=== PATIENT | male | born 1950 | race Caucasian/White ===

== ENCOUNTER → 2020-05-08 11:00 | Outpatient (BNVA) | payer MEDICARE, OTHER, SELFPAY | PROVIDERS: Family Provider Electrodiagnostic Medicine; Visit Provider Family Medicine | DX: E11.9 Type 2 diabetes mellitus without complications (principal); I10 Essential (primary) hypertension; Z79.4 Long term (current) use of insulin; E03.9 Hypothyroidism, unspecified | CPT/HCPCS: 80053; 80061; 83036; 84443; 85025 ==

== ENCOUNTER 2020-06-20 05:51 | Day surgery (SDC) | payer MEDICARE, OTHER, SELFPAY ==
[2020-06-18 14:13] VITALS: BMI 44.4
[2020-06-20 06:06] VITALS: BP 155/91; PULSE 82; RESP 18; TEMP 36.3; O2SAT 96
[2020-06-20] MEDS: sodium chloride 0.9% 1,000 ML 30 ML IV ×2 (06:16→09:05)
[2020-06-20 06:18] LABS: Glucose Point of Care 203 mg/dL (70-110)
--- NOTE | 2020-06-20 06:51 | P.ANESASSM_ITS ---
Pre-Anesthetic Assessment Pre-Anesthetic Assessment: Height/Weight: Height 2.01 m Weight 179.169 kg Temp Pulse Resp BP Pulse Ox 97.3 F L 82 18 155/91 96 06/20/20 06:06 06/20/20 06:06 06/20/20 06:06 06/20/20 06:06 06/20/20 06:06 Preop Diagnosis: Status post right colectomy Proposed Procedure: Operation Date: 06/20/20 07:00 Proposed Procedures p Colonoscopy with poss biopsy poss polpectomy 05992 Z86.010(Not Applicable) - Gary Loco MD Was Beta Марина taken within 24 hours: Yes Last intake: Intake Last Liquid Date 06/19/20 Last Liquid Time 20:00 Last Solid Date 06/18/20 Social: Social History: No alcohol and No tobacco Exam: Pre-Anes Outpt Exam: alert, oriented x 3, clear to auscultation brown aterally and regular rate & rhythm Airway: Submandibular: WNL Cervical ROM: WNL MP: 2 Dentition: Full History/ROS: No significant history except as noted and No significant complaints Pulmonary: Pulmonary: None reported CV/HEM: CV/HEM: HTN : : None reported Hepatic: Hepatic: None reported GI: GI: GERD Metabolic: Metabolic: DM, Morbid obesity and Thyroid Musc/skel: Musc/skel: None reported Neuropsych: Neuropsych: None reported Anesthetic Plan: ASA status: 3 Anesthesia: Anesthesia Evaluation and MAC Risk of > 500 ml blood loss (7ml/kg in children): No Meds/Allergies Current Medications: Current Medications Generic Name Dose Route Start Last Admin Trade Name Freq PRN Reason Stop Dose Admin Sodium Chloride 1,000 mls @ 30 ml s/hr 06/20/20 06:00 06/20/20 06:16 Sodium Chloride 0.9% IV 30 mls/hr .Q24H AN Administration PFSH Anesthesia PFSH: Medical History (Updated 05/17/20 @ 17:52 by Gary Loco MD) Diabetes mellitus H/O adenomatous polyp of colon Hypertension Hypothyroidism Surgical History (Updated 05/17/20 @ 17:52 by Gary Loco MD) History of colectomy History of colonoscopy Family History Denies family history of Anesthesia complication Bleeding disorder Social History Smoking and tobacco status: never smoked Alcohol intake: never Data Anesthesia Other Labs: Laboratory Results - last 48 hr 06/20/20 06:14 POC Glucose 203 Cardiac Studies: No Data to Display
--- NOTE | 2020-06-20 09:02 | W.PM.OPSFHP ---
Same Day Surgery H&P Indication for Procedure/HPI DATE OF PROCEDURE: June 20, 2020 CHIEF COMPLAINT/INDICATIONFOR SURGICAL PROCEDURE: history of colon polyps PREOP DIAGNOSIS: Status post right colectomy PLANNED PROCEDRUE: Operation Date: 06/20/20 07:00 Proposed Procedures p Colonoscopy with poss biopsy poss polpectomy 13755 Z86.010(Not Applicable) - Gary Loco MD Medications/Allergies* Home Medications Medication Instructions Recorded Confirmed Type aspirin 81 mg tablet,delayed 81 mg PO DAILY 05/08/20 06/18/20 History release levothyroxine 200 mcg tablet 200 mcg PO DAILY 05/08/20 06/18/20 History glimepiride 5 mg PO BID 05/14/20 06/20/20 History losartan-hydrochlorothiazide 1 tab PO DAILY 06/18/20 06/20/20 History omeprazole 20 mg PO DAILY PRN 06/20/20 06/20/20 History Allergies/Adverse Reactions Allergy/AdvReac Type Severity Reaction Status Date / Time No Known Allergies Allergy Unverified 05/14/20 13:24 Current Medications: Generic Name Dose Route Start Last Admin Trade Name Freq PRN Reason Stop Dose Admin Sodium Chloride 1,000 mls @ 30 mls/hr 06/20/20 06:00 06/20/20 06:16 Sodium Chloride 0.9% IV 30 mls/hr .Q24H AN Administration Pertinent History/Comorbid Conditions* Medical History (Updated 05/17/20 @ 17:52 by Gary Loco MD) Diabetes mellitus H/O adenomatous polyp of colon Hypertension Hypothyroidism Surgical History (Updated 05/17/20 @ 17:52 by Gary Loco MD) History of colectomy History of colonoscopy Family History (Updated 05/14/20 @ 13:27 by ZO Vale) Denies family history of Anesthesia complication Bleeding disorder Social History Smoking and tobacco status: never smoked Alcohol intake: never Pertinent Exam Findings alert, oriented x 3 and operative site marked Recommendations Surgery/Procedure today Coding Level of Care Code Acute College And Career Counselor for Mateo Blood
[2020-06-20 09:20] VITALS: BP 131/67; PULSE 61; RESP 16; TEMP 36.2; O2SAT 93
[2020-06-20 09:36] VITALS: BP 124/74; PULSE 64; RESP 18; O2SAT 94
== END 2020-06-20 09:40 | disposition home or self-care (01) ==
PROVIDERS: PCP Electrodiagnostic Medicine; Visit Provider Surgery
PROC: 0DJD8ZZ Inspection of Lower Intestinal Tract, Via Natural or Artificial Opening Endoscopic (ICD-10-PCS; CPT 45378; principal; 2020-06-20 07:00)
DX: Z86.010 Personal history of colon polyps (principal); Z90.49 Acquired absence of other specified parts of digestive tract; Z79.82 Long term (current) use of aspirin; E11.9 Type 2 diabetes mellitus without complications; E03.9 Hypothyroidism, unspecified; I10 Essential (primary) hypertension; K57.30 Diverticulosis of large intestine without perforation or abscess without bleeding; K21.9 Gastro-esophageal reflux disease without esophagitis; E66.01 Morbid (severe) obesity due to excess calories; Z68.41 Body mass index [BMI] 40.0-44.9, adult
CPT/HCPCS: 12345; 36416; 45378; 82962; J2704; J7030

== ENCOUNTER 2020-08-12 17:27 | Emergency (ER) | payer MEDICARE, OTHER, SELFPAY ==
[2020-08-12 17:36] VITALS: BP 179/84; PULSE 75; RESP 14; TEMP 36.7; O2SAT 95; BMI 45.0
--- NOTE | 2020-08-12 18:10 | XR_ITS ---
WS: [id number] EXAM: AP CHEST: PORTABLE UPRIGHT DATE OF EXAM: 08/12/2020, 1834 hours COMPARISON: NONE HISTORY: Patient is 70 years old with atraumatic chest pain. FINDINGS: The cardiac silhouette is normal in size. The mediastinal contours are normal. The pulmonary vas cularity is normal. The lungs are clear of infiltrate. There is no effusion or pneumothorax. No ac amy bony abnormality is seen. XR/XR chest 1V portable [id number] IMPRESSION: No acute pulmonary disease.
[2020-08-12 18:22] VITALS: O2SAT 94
[2020-08-12 18:26] LABS: Basophils # 0.1 10^3/uL (0.0-0.1); Basophils % 0.6 %; Eosinophils # 0.3 10^3/uL (0.0-0.8); Eosinophils % 2.6 %; Hematocrit 38.5 % (42.0-52.0); Hemoglobin 12.3 g/dL (11.7-16.6); Lymphocytes % 31.7 %; Mean Corpuscular HGB Conc 31.9 g/dL (30.0-36.0); Mean Corpuscular Hemoglobin 25.8 pg (28.0-34.0); Mean Corpuscular Volume 80.7 fL (80-94); Mean Platelet Volume 10.5 fL (7.4-10.4); Monocytes # 0.6 10^3/uL (0.2-0.9); Monocytes % 6.6 %; Neutrophils # 5.58 10^3/uL (1.8-7.7); Neutrophils % 58.1 %; Nucleated Red Blood Cells % 0 %; Platelet Count 196 10^3/cmm (130-400); Red Blood Count 4.77 10^6/uL (4.1-5.3); Red Cell Distribution Width 14.7 % (12.1-15.1); White Blood Count 9.6 10^3/uL (4.0-10.0)
--- NOTE | 2020-08-12 18:29 | ED_ITS ---
HPI - Chest Pain General: Chief Complaint: Chest Pain Stated Complaint: CHEST PAIN Time Seen by Provider: 08/12/20 18:10 Source: patient Mode of arrival: ambulatory Limitations: no limitations History of Present Illness: HPI narrative: 70-year-old male with extensive cardiac history. Patient has history of high blood pressure along with diabetic and obesity. Patient had stents placed roughly 8 years ago. He states he has been having chest pain is a pressure type pain in the center of his chest that started 1 hour ago. He states the pain has improved. States pain is currently 2 out of 10. Denies any shortness of breath. Associated symptoms: Deny abdominal pain, dyspnea, fever(s), nausea or vomiting Review of Systems Const: Denies: fever(s), chills, body aches or change in appetite Eyes: Denies: blurry vision or eye discomfort ENMT: Denies: throat pain or dental pain Card: Reports: chest pain Resp: Denies: dyspnea GI: Denies: abdominal pain, nausea, vomiting or diarrhea : Denies: dysuria Musc: Denies: neck pain or back pain Skin/Breast: Denies: rash Neuro: Denies: headache(s) Psych: Denies: depression Boby/Lymph: Denies: easy bruising All/Imm: Denies: urticaria PFSH ED PFSH: Medical History Diabetes mellitus H/O adenomatous polyp of colon Hypertension Hypothyroidism Surgical History History of colectomy History of colonoscopy (06/20/20) diverticulosis Family History Denies family history of Anesthesia complication Bleeding disorder Social History Smoking and tobacco status: never smoked Alcohol intake: never Physical Exam Const: COMMON NORMALS: no acute distress, patient oriented x3 and healthy appearing HENMT: COMMON NORMALS: normocephalic and atraumatic HEAD & SCALP: normocephalic and atraumatic Eye: COMMON NORMALS: Equal, round and reactive pupils present and EOMs intact bilaterally PUPIL: Yes Equal, round and reactive pupils present Neck/C-Spine: COMMON NORMALS: full ROM and supple Chest: COMMONS NORMALS: normal inspection of the chest and normal palpation of entire chest wall Resp: COMMON NORMALS: normal respiratory effort, No retractions, No use of accessory muscles and clear to auscultation bilaterally AUSCULTATION: clear to auscultation bilaterally Cardio: COMMON NORMALS: regular rate, regular rhythm and No murmurs present (Cardio) RATE: regular rate RHYTHM: regular rhythm GI: COMMON NORMALS: Normal to inspection, nondistended, normoactive bowel soun ds present, Soft to palpation, non-tender and no masses PALPATION: Yes Soft to palpation Extremity: COMMON NORMALS: normal to inspection and full ROM Neuro: COMMON NORMALS: patient oriented x3, moves all extremities and no focal motor deficits Psych: COMMON NORMALS: mental status grossly normal, Normal thought process present and cooperative THOUGHT PROCESS: Normal thought process present Skin: COMMON NORMALS: no rashes or lesions noted and no wounds GENERAL SKIN EXAM: no rashes or lesions noted Course Vital Signs: Vital signs: Vital Signs Temperature 98.0 F 08/12/20 17:36 Pulse Rate 75 08/12/20 17:36 Respiratory Rate 14 08/12/20 17:36 Blood Pressure 179/84 08/12/20 17:36 Pulse Oximetry 94 08/12/20 18:22 MDM - Chest Pain MDM Narrative: Medical decision making narrative: 70-year-old male who presents here with chest pain. Patient has multiple risk factors and a high heart score. Patient's initial troponin and EKG here are normal. His pain is improved here as well. He has been hypertensive here. I spoke to hospitalist will admit for observation for ACS rule out. Lab Data: Labs: Lab Results 08/12/20 08/12/20 08/12/20 Range/Units 18:20 18:20 18:20 WBC 9.6 (4.0-10.0) 10^3/ uL RBC 4.77 (4.1-5.3) 10^6/u L Hgb 12.3 (11.7-16.6) g/dL Hct 38.5 L (42.0-52.0) % MCV 80.7 (80-94) fL MCH 25.8 L (28.0-34.0) pg MCHC 31.9 (30.0-36.0) g/dL RDW 14.7 (12.1-15.1) % Plt Count 196 (130-400) 10^3/c mm MPV 10.5 H (7.4-10.4) fL Neut % (Auto) 58.1 % Lymph % (Auto) 31.7 % Mason % (Auto) 6.6 % Eos % (Auto) 2.6 % Baso % (Auto) 0.6 % Neut # (Auto) 5.58 (1.8-7.7) 10^3/u L Lymph # (Auto) 3.0 (0.8-4.8) 10^3/u L Mason # (Auto) 0.6 (0.2-0.9) 10^3/u L Eos # (Auto) 0.3 (0.0-0.8) 10^3/u L Baso # (Auto) 0.1 (0.0-0.1) 10^3/u L Nucleated RBC % (a uto) 0 % Nucleated RBCs # 0.0 /100WBC PT 12.70 (12.1-14.9) SECO NDS INR 0.95 (0.8-1.2) Sodium 134 L (136-145) mmol/L Potassium 4.1 (3.5-5.1) mmol/L Chloride 97 L (98-107) mmol/L Carbon Dioxide 25 (22-29) mmol/L Anion Gap 16.1 (5-19) BUN 14 (8-23) mg/dL Creatinine 1.2 (0.7-1.2) mg/dL GFR Calculation 60.2 L (90-130) mL/min Glucose 274 H (65-115) mg/dL Calculated Osmolal ity 284 L (285-295) mOsm/k g Calcium 8.9 (8.5-10.5) mg/dL Total Bilirubin 0.6 (0.15-1.2) mg/dL AST 41 H (0-40) U/L ALT 47 H (0-41) U/L Alkaline Phosphata se 109 (40-130) IU/L Troponin T Baselin e (0-15) ng/L Total Protein 7.1 (6.6-8.7) g/dL Albumin 3.7 (3.5-5.2) g/dL Globulin 3.4 (1.3-4.6) g/dL 08/12/20 Range/Units 18:20 WBC (4.0-10.0) 10^3/ uL RBC (4.1-5.3) 10^6/u L Hgb (11.7-16.6) g/dL Hct (42.0-52.0) % MCV (80-94) fL MCH (28.0-34.0) pg MCHC (30.0-36.0) g/dL RDW (12.1-15.1) % Plt Count (130-400) 10^3/c mm MPV (7.4-10.4) fL Neut % (Auto) % Lymph % (Auto) % Mason % (Auto) % Eos % (Auto) % Baso % (Auto) % Neut # (Auto) (1.8-7.7) 10^3/u L Lymph # (Auto) (0.8-4.8) 10^3/u L Mason # (Auto) (0.2-0.9) 10^3/u L Eos # (Auto) (0.0-0.8) 10^3/u L Baso # (Auto) (0.0-0.1) 10^3/u L Nucleated RBC % (a uto) % Nucleated RBCs # /100WBC PT (12.1-14.9) SECO NDS INR (0.8-1.2) Sodium (136-145) mmol/L Potassium (3.5-5.1) mmol/L Chloride (98-107) mmol/L Carbon Dioxide (22-29) mmol/L Anion Gap (5-19) BUN (8-23) mg/dL Creatinine (0.7-1.2) mg/dL GFR Calculation (90-130) mL/min Glucose (65-115) mg/dL Calculated Osmolal ity (285-295) mOsm/k g Calcium (8.5-10.5) mg/dL Total Bilirubin (0.15-1.2) mg/dL AST (0-40) U/L ALT (0-41) U/L Alkaline Phosphata se (40-130) IU/L Troponin T Baselin e 9 (0-15) ng/L Total Protein (6.6-8.7) g/dL Albumin (3.5-5.2) g/dL Globulin (1.3-4.6) g/dL Imaging Data^: CXR: Radiologist's impression: [facility] [address] [place] [address] XRay Report Signed Patient: Amado Chaney Unit #: [id number] : 1950 Age/Sex: 70 / M ADM Date: 08/12/20 Loc: ER Room/Bed: Attending Dr: Ordering Provider/Ordering MD: Mariana Nguyễn MD Date of Service: 08/12/20 Procedure(s): XR chest 1V portable [id number] Accession Number(s): [id number] Report Number: [id number] WS: [id number] EXAM: AP CHEST: PORTABLE UPRIGHT DATE OF EXAM: 08/12/2020, 1834 hours COMPARISON: NONE HISTORY: Patient is 70 years old with atraumatic chest pain. FINDINGS: The cardiac silhouette is normal in size. The mediastinal contours are normal. The pulmonary vascularity is normal. The lungs are clear of infiltrate. There is no effusion or pneumothorax. No acute bony abnormality is seen. XR/XR chest 1V portable [id number] IMPRESSION: No acute pulmonary disease. EKG Data^: EKG 1: Attestation: I personally reviewed and interpreted this EKG as follows: EKG interpretation date: 08/12/20 EKG interpretation time: 15:30 Interpretation: nsr hr [address] or t wave abnormalities qrs 105 qtc 422 Discharge Plan Discharge Condition: Good Prescriptions: No Action aspirin [Adult Low Dose Aspirin] 81 mg tablet,delayed release (DR/EC) 81 mg PO DAILY RF: 0 Lantus U-100 Insulin 100 unit/mL solution 100 unit SUBCUT DAILY Qty: 300 RF: 3 (DME) insulin syringe-needle U-100 [Advocate Syringes] 1 mL 31 gauge x 5/16 syringe See Rx Instructions .ROUTE .MEDSUPPLY Qty: 100 RF: 4 omeprazole 20 mg tablet,delayed release (DR/EC) 20 mg PO DAILY PRN (Reason: Acid Reflux) Qty: 90 RF: 0 glipizide 5 mg tablet 5 mg PO BID Qty: 60 RF: 2 levothyroxine 200 mcg tablet 200 mcg PO DAILY Qty: 90 RF: 0 losartan-hydrochlorothiazide 50-12.5 mg Tablet 2 tab PO DAILY RF: 0 Coding Level of Care Code ED Is Consultant for Chg Fwd Exam Comprehensive
[2020-08-12 18:43] LABS: Alanine Aminotransferase 47 U/L (0-41); Albumin Level 3.7 g/dL (3.5-5.2); Alkaline Phosphatase 109 IU/L (40-130); Anion Gap 16.1 (5-19); Aspartate Amino Transferase 41 U/L (0-40); Blood Urea Nitrogen 14 mg/dL (8-23); Calcium 8.9 mg/dL (8.5-10.5); Carbon Dioxide 25 mmol/L (22-29); Chloride 97 mmol/L (98-107); Globulin 3.4 g/dL (1.3-4.6); Glomerular Filtration Rate 60.2 mL/min (90-130); Glucose 274 mg/dL (65-115); Osmolality Calculated 284 mOsm/kg (285-295); Potassium 4.1 mmol/L (3.5-5.1); Sodium 134 mmol/L (136-145); Total Bilirubin 0.6 mg/dL (0.15-1.2); Total Protein 7.1 g/dL (6.6-8.7)
[2020-08-12 18:45] LABS: Troponin(5th) Baseline 9 ng/L (0-15)
[2020-08-12 18:52] LABS: INR 0.95 (0.8-1.2)
[2020-08-12] MEDS: aspirin 81 mg Chew Tablet 324 MG PO (18:58)
--- NOTE | 2020-08-12 18:59 | PC.NURSE ---
Patient reports he is feeling much better at this time and denies any pain at present. ASA given per doctor's orders.
--- NOTE | 2020-08-12 19:58 | PM.HP ---
Providers/Chief Complaint Primary Care Provider: Darrell Khalil DO Chief Complaint: CHEST PAIN History of Present Illness Amado Chaney is a 70 year old male who carries established history of right coronary artery disease status post stent placement in 2008, hypertension, type 2 diabetes, obesity, came in today after experiencing chest pain. Patient is stating that he was preparing to attend a birthday libertarian of his grand son today, 1 hour before his arrival to the ER he started experiencing substernal pressure-like sensation, he described as someone sitting on his chest, his pain was also radiating towards his left shoulder, he felt nauseous and experienced diaphoresis and decided to come to the hospital. On arrival to the hospital he was given 20 mg of IV hydralazine for hypertensive urgency along aspirin therapeutic dose which relieved his substernal chest pressure. Patient is stating that he is not very active at baseline, does not smoke or drink alcohol. He has not noticed any fever, shortness of breath, vomiting, diarrhea, constipation, dysuria, cough, swelling of lower extremities or leg cramps. Patient is stating that at home his blood pressure runs between 130s to 140s, he is taking losartan and hydrochlorothiazide on regular basis. He is endorsing some dizziness on changing position in his bed. He is describing dizziness as surroundings are spinning. He is endorsing similar episode in the past for which he required meclizine. Diagnosis in the ER revealed normal CBC, mild hyponatremia, hyperglycemia, mild abnormal transaminases, baseline troponin IX, EKG without ischemic or infarctive change At the time of my evaluation blood pressure 179/84, he is chest pain-free, complained about nausea and was able to give above-mentioned detail I would request d-dimer, Lexiscan stress test, lipid profile and TSH Patient is not sure why he is not taking atorvastatin Review of Systems Const: Reports: body aches and fatigue; Denies: fever(s) or chills Eyes: Denies: change in vision ENMT: Denies: throat pain Card: Reports: chest pain and dyspnea on exertion; Denies: irregular heart rhythm, swelling of feet/ankles or orthopnea Resp: Denies: dyspnea GI: Denies: abdominal pain : Denies: flank pain Musc: Denies: neck pain Skin/Breast: Denies: rash Neuro: Reports: dizziness Psych: Denies: anxiety Endo: Denies: polyuria Boby/Lymph: Denies: easy bruising All/Imm: Denies: urticaria Medications/Allergies Home Medications Medication Instructions Recorded Confirmed Last Taken Type aspirin 81 mg tablet,delayed 81 mg PO DAILY 05/08/20 08/12/20 08/12/20 History release insulin glargine 100 unit/mL 100 unit SUBCUT DAILY #300 ml 05/08/20 08/12/20 08/12/20 Rx subcutaneous solution insulin syringe-needle U-100 1 mL #100 each 05/08/20 08/12/20 Unknown Rx 31 gauge x 04/13 losartan-hydrochlorothiazide 2 tab PO DAILY 06/18/20 08/12/20 08/12/20 History omeprazole 20 mg tablet,delayed 20 mg PO DAILY PRN #90 tab 06/25/20 08/12/20 Unknown Rx release glipizide 5 mg tablet 5 mg PO BID #60 tab 07/01/20 08/12/20 08/12/20 08:00 Rx levothyroxine 200 mcg tablet 200 mcg PO DAILY #90 tab 07/02/20 08/12/20 08/12/20 Rx Allergies Allergy/AdvReac Type Severity Reaction Status Date / Time No Known Allergies Allergy Verified 08/12/20 18:32 PFSH Acute PFSH: Medical History Diabetes mellitus H/O adenomatous polyp of colon Hypertension Hypothyroidism Surgical History History of colectomy History of colonoscopy (06/20/20) diverticulosis Family History Denies family history of Anesthesia complication Bleeding disorder Social History (Updated 08/12/20 @ 21:26 by Kevan Khan MD) Smoking and tobacco status: never smoked Alcohol intake: never Substance/Drug Use: never Marital status: Current occupational status: retired Current occupation: Previous SENIOR [employer] DEVELOPER of [employer] Vitals/I&O/Wt Last Vital Signs Temp 98.0 F 08/12/20 17:36 Pulse 75 08/12/20 17:36 Resp 14 08/12/20 17:36 BP 179/84 09/14/20 17:36 Pulse Ox 94 08/12/20 18:22 Weight last 48 hrs Weight 181.437 kg Physical Exam Narrative: EXAM NARRATIVE: Very pleasant male Currently sitting in the chair without any active chest pain Systolic blood pressure 179, diastolic 84 mmHg No murmur appreciated on cardiac auscultation, S1-S2 Morbid obesity Abdomen soft, distended, with obesity, Appropriate mood and affect EOMI, PERRLA Bilateral breath sounds without adventitious sounds Neurologically nonfocal exam No lower extremity edema gangrene or ulcer Data : 08/12/20 18:20 08/12/20 18:20 A&P Assessment and plan (1) Unstable angina: Status: Acute (2) Diabetes mellitus: Status: Acute (3) Hypertension: Status: Acute (4) Hypothyroidism: Status: Acute Additional A&P Information Unstable angina Typical symptoms of coronary disease with underlying established coronary disease with stent placement in RCA in 2008 First troponin 9, without ischemic or infarctive changes on EKG Currently chest pain-free Serial troponins and EKG Cardiac stress test in the morning Patient prefers to see his own superintendent distribution in [place] in case angiogram is recommended Agreeable for cardiac stress test tomorrow N.p.o. after midnight Avoid beta-blockers Check lipid panel and TSH, d-dimer to rule out PE(leading a sedentary lifestyle) Patient is not on statins despite coronary disease, I would defer statin initiation to his superintendent distribution however I have reinstated the importance of atorvastatin Check BNP and echo in the am Hypertensive urgency Required 20 mg of hydralazine in the ER I believe he requires at least 3 antihypertensive agents Would avoid adding beta-eufemia for now because of cardiac stress testing in the morning, will give an extra dose of lisinopril tonight, might benefit from optimizing current regimen and adding amlodipine Hypothyroidism: Check TSH, continue levothyroxine home dosage for now Hyperglycemia with type 2 diabetes Keep him on mild sliding scale in case he will be n.p.o. overnight Full code VT prophylaxis Lovenox N.p.o. after midnight Attestations Medical Necessity Statement*: Anticipating discharge in less than 48 hours currently need cardiac stress testing and echo to rule out coronary etiology for typical chest pain Time Spent in Patient Care: (>than 50% of time spent in counselling and/or direct pt care on unit). 50mins Coding Level of Care Code Acute Hydraulic Billet Maker for Chg Fwd Diagnoses Unstable angina I20.0 Diabetes mellitus E11.9 Hypertension I10 Hypothyroidism E03.9
[2020-08-12] MEDS: hyDRALAzine 20 mg/mL INJ 1 mL 10 MG IVP (19:59)
--- NOTE | 2020-08-12 20:10 | ECG_ITS ---
[facility] Test Date: 2020-08-12 Pat Name: Amado Chaney Department: Room: Gender: Male Safety Sealer: : 1950 Requested By: Mariana Nguyễn Order Number: [id number] Darrius MD: Lindy Sandoval M.D. Measurements Intervals [place] Rate: 81 P: 49 TN: 194 QRS: -29 QRSD: 96 T: 70 QT: 369 QTc: 431 Interpretive Statements SINUS RHYTHM BORDERLINE LEFT AXIS DEVIATION [QRS AXIS < -20] NONSPECIFIC ST & T-WAVE ABNORMALITY Compared to ECG 03/29/2019 13:58:47 No significant changes Electronically Signed On 08-13-2020 14:58:43 CDT by Lindy Sandoval M.D. [id number]
[2020-08-12 21:10] VITALS: RESP 18; O2SAT 98
[2020-08-12] MEDS: ondansetron 2 mg/ML SDV 2 mL 4 MG IVP (21:10)
[2020-08-12] MEDS: morphine 4 mg/mL SDV 1 mL IVP (21:10)
[2020-08-12] MEDS: LORazepam 2 mg/mL INJ 1 mL 1 MG IVP (21:40)
[2020-08-12 21:50] LABS: Troponin 5 2HR 7.93 ng/L (0-15)
[2020-08-12 21:51] LABS: Troponin 5 2HR Delta -1.07 ABS# (0-10)
[2020-08-12 22:32] VITALS: BP 142/60; PULSE 72; RESP 16; O2SAT 93
[2020-08-12 23:03] LABS: Glucose Point of Care 239 mg/dL (70-110)
== END 2020-08-12 22:50 | disposition home or self-care (01) ==
LOC: ER 20:52 → MEDSURG 22:31
PROVIDERS: Internal Medicine; Emergency Provider Emergency Medicine; PCP Electrodiagnostic Medicine
DX: R07.9 Chest pain, unspecified (principal); Z79.82 Long term (current) use of aspirin; Z79.4 Long term (current) use of insulin; E11.9 Type 2 diabetes mellitus without complications; I10 Essential (primary) hypertension
CPT/HCPCS: 12345; 36416; 71045; 80053; 82962; 84484; 85025; 85610; 93005; 96374; 96375; 96376; 99282; 99284; J0360; J2060; J2270; J2405

== ENCOUNTER → 2020-10-17 16:45 | Outpatient (BNVA) | payer MEDICARE, OTHER, SELFPAY | PROVIDERS: PCP Electrodiagnostic Medicine; Visit Provider Nurse Practitioner Family | DX: E11.9 Type 2 diabetes mellitus without complications (principal); E03.9 Hypothyroidism, unspecified; I10 Essential (primary) hypertension | CPT/HCPCS: 80053; 80061; 81015; 82043; 83036; 84439; 84443; 84481; 85025 ==

== ENCOUNTER → 2020-10-29 09:45 | Outpatient (BNVA) | payer MEDICARE, OTHER, SELFPAY | PROVIDERS: PCP Electrodiagnostic Medicine; Referring Provider Nurse Practitioner Family; Visit Provider Internal Medicine | DX: E03.9 Hypothyroidism, unspecified (principal); E11.319 Type 2 diabetes mellitus with unspecified diabetic retinopathy without macular edema; E11.40 Type 2 diabetes mellitus with diabetic neuropathy, unspecified; E11.59 Type 2 diabetes mellitus with other circulatory complications; I25.10 Atherosclerotic heart disease of native coronary artery without angina pectoris; E11.65 Type 2 diabetes mellitus with hyperglycemia; Z79.4 Long term (current) use of insulin; E66.01 Morbid (severe) obesity due to excess calories; Z68.41 Body mass index [BMI] 40.0-44.9, adult; R74.01 Elevation of levels of liver transaminase levels | CPT/HCPCS: 99204 ==

== ENCOUNTER 2020-12-01 20:04 | Emergency (ER) | payer MEDICARE, OTHER, SELFPAY ==
[2020-12-01 20:10] VITALS: BP 170/76; PULSE 80; RESP 20; TEMP 37.4; O2SAT 80; BMI 45.0
[2020-12-01 20:19] VITALS: BP 170/76; PULSE 78; RESP 20; O2SAT 90
--- NOTE | 2020-12-01 20:49 | XRR_ITS ---
PROCEDURE INFORMATION: Exam: XR Chest, 1 View Exam date and time: 12/01/2020 9:19 PM Age: 70 years old Clinical indication: Condition or disease; Other: Covid + 11/25; Shortness of breath; Prior surgery; Surgery type: Stent; Additional info: SOB TECHNIQUE: Imaging protocol: XR of the chest Views: 1 view. COMPARISON: CR XR chest 1V portable [id number] 08/12/2020 6:32 PM FINDINGS: Lungs: Patchy interstitial and alveolar airspace disease most pronounced within the right upper lobe and left lung base and to a lesser degree the right lung base. Edema and/or pneumonia. Pleural space: Unremarkable. No pleural effusion. No pneumothorax. Heart/Mediastinum: The cardiac silhouette appears enlarged, some of which is magnification related to the AP projection. Bones/joints: Unremarkable. XR/XR chest 1V portable [id number] IMPRESSION: Patchy interstitial and alveolar airspace disease most pronounced within the right upper lobe and left lung base and to a lesser degree the right lung base. Edema and/or pneumonia. Progressive. Findings consistent with the given history.
[2020-12-01 20:51] VITALS: O2SAT 90
--- NOTE | 2020-12-01 20:51 | ECG_ITS ---
[facility] Test Date: 2020-12-01 Pat Name: Amado Chaney Department: Room: Gender: Male Sander Setter: : 1950 Requested By: Rohit Kelly Order Number: [id number] Darrius MD: Arsalan Ellison M.D. Measurements Intervals [place] Rate: 83 P: 23 [place]: 188 QRS: -30 QRSD: 112 T: 17 QT: 398 QTc: 468 Interpretive Statements SINUS RHYTHM BORDERLINE LEFT AXIS DEVIATION [QRS AXIS < -20] MODERATE INTRAVENTRICULAR CONDUCTION DELAY [110+ ms QRS DURATION] Compared to ECG 08/12/2020 21:38:40 Intraventricular conduction delay now present T-wave abnormality no longer present Electronically Signed On 12-02-2020 18:59:37 MEDICAL EDUCATION COORDINATOR by Arsalan Ellison M.D. [id number]
[2020-12-01] MEDS: dexamethasone 4 mg/mL INJ 10 MG IV (21:04)
[2020-12-01] MEDS: ondansetron 2 mg/ML SDV 2 mL 4 MG IVP (21:04)
[2020-12-01 21:07] LABS: Basophils % 0.3 %; Eosinophils % 0.2 %; Hematocrit 41.6 % (42.0-52.0); Lymphocytes # 1.5 10^3/uL (0.8-4.8); Lymphocytes % 23.7 %; Mean Corpuscular HGB Conc 31.3 g/dL (30.0-36.0); Mean Corpuscular Hemoglobin 26.8 pg (28.0-34.0); Mean Corpuscular Volume 85.8 fL (80-94); Mean Platelet Volume 11.5 fL (7.4-10.4); Monocytes # 0.4 10^3/uL (0.2-0.9); Monocytes % 6.3 %; Neutrophils # 4.29 10^3/uL (1.8-7.7); Nucleated Red Blood Cells % 0 %; Platelet Count 149 10^3/cmm (130-400); Red Blood Count 4.85 10^6/uL (4.1-5.3); Red Cell Distribution Width 14.3 % (12.1-15.1); White Blood Count 6.2 10^3/uL (4.0-10.0)
[2020-12-01 21:15] LABS: D Dimer 0.66 ug/mIFEU (0-0.59)
[2020-12-01 21:20] LABS: Lactic Sepsis W/Reflex 1.7 mmol/L (0.5-2.2)
[2020-12-01 21:21] LABS: Troponin(5th) Baseline 14 ng/L (0-15)
[2020-12-01 21:28] LABS: NT Pro B Type Natriuretic Pept 74 pg/mL (0-125); Procalcitonin 0.08 ng/mL (0-0.5)
[2020-12-01 21:39] LABS: ABG PCO2 35.9 mmHg (35-45); ABG PH Result 7.43 (7.35-7.45); Arterial Blood Gas Hematocrit 40.8 % (42-52); Blood Gas Allen Test Pos; Blood Gas Sample Site Radial, right; Blood Gas Sample Type Arterial; HCO3 ABG 23.9 mmol/L (22-26); Oxygen Device NC; PO2 ABG 55.5 mmHg (80.0-100.0)
[2020-12-01 21:39] LABS: Alanine Aminotransferase 38 U/L (0-41); Albumin Level 3.4 g/dL (3.5-5.2); Alkaline Phosphatase 76 IU/L (40-130); Blood Urea Nitrogen 12 mg/dL (8-23); C Reactive Protein 62.4 mg/L (0.0-4.9); Calcium 8.4 mg/dL (8.5-10.5); Carbon Dioxide 22 mmol/L (22-29); Chloride 100 mmol/L (98-107); Glomerular Filtration Rate 112.1 mL/min (90-130); Glucose 225 mg/dL (65-115); Osmolality Calculated 289 mOsm/kg (285-295); Sodium 136 mmol/L (136-145); Total Bilirubin 0.7 mg/dL (0.15-1.2); Total Protein 6.4 g/dL (6.6-8.7)
[2020-12-01 21:49] LABS: Anion Gap 18.1 (5-19); Potassium 4.1 mmol/L (3.5-5.1)
[2020-12-01 21:50] LABS: Aspartate Amino Transferase 49 U/L (0-40); Lactate Dehydrogenase 269 U/L (135-225)
[2020-12-01 22:55] VITALS: PULSE 80; RESP 29; O2SAT 87
[2020-12-01 23:29] VITALS: BP 154/77; PULSE 83; RESP 19; O2SAT 90
--- NOTE | 2020-12-01 23:29 | ED_ITS ---
HPI - COVID General: Chief Complaint: COVID symptoms Stated Complaint: COVID + Time Seen by Provider: 12/01/20 20:31 Triage information: Has fever, cough or shortness of breath . Exposure to COVID + person last 14 days History of Present Illness: HPI Narrative: 70-year-old male who tested positive for Covid on 25 November. He has had symptoms since 11/20. He reports increasing shortness of breath over the past couple of days, much worse tonight at home. He was in respiratory distress on EMS arrival. Oxygenation improved to some degree with 6 L of nasal cannula. He is awake and talking but very short of breath. He notes of a dry cough. No fever. He reports nausea. He denies any chest pain. He has a history of diabetes MD complaint: known COVID positive Prior covid testing: yes, results known COVID 19 common symptoms: positive non-productive cough, dyspnea, fatigue, headache(s) and nausea; negative vomiting COVID 19 other sytmptoms: positive chest pressure; negative chest pain Onset (ago): day(s) Severity: moderate Pertinent comorbid conditions: diabetes Treatment prior to arrival: oxygen COVID Results: No Data to Display Review of Systems Const: Reports: fatigue Eyes: Denies: change in vision ENMT: Denies: odynophagia or sinus pain Card: Denies: chest pain Resp: Reports: dyspnea and non-productive cough GI: Reports: nausea; Denies: abdominal pain or vomiting : Denies: difficulty urinating or hematuria Musc: Reports: back pain; Denies: neck pain Skin/Breast: Denies: rash or erythema Neuro: Reports: headache(s); Denies: dizziness or vertigo Psych: Denies: anxiety PFSH ED PFSH: Medical History (Updated 12/01/20 @ 23:49 by Rohit Harvey DO) Diabetes mellitus H/O adenomatous polyp of colon Hypertension Hypothyroidism Surgical History History of colectomy History of colonoscopy (06/20/20) diverticulosis Family History Denies family history of Anesthesia complication Bleeding disorder Social History Smoking and tobacco status: never smoked Alcohol intake: never Marital status: Current occupational status: retired Current occupation: Previous SCHOOL PHYSICAL THERAPIST of [employer] Physical Exam Const: GENERAL APPEARANCE: well developed ORIENTATION/CONSCIOUSNESS: Yes oriented to person, Yes oriented to place and Yes oriented to time HENMT: COMMON NORMALS: normocephalic, external ears normal and Normal external nose present HEAD & SCALP: normocephalic FACE & SINUS: normal facial exam NOSE: Normal external nose present and No nasal discharge present EXTERNAL EAR: Yes external ears normal Eye: COMMON NORMALS: Equal, round and reactive pupils present, EOMs intact bilaterally and conjunctivae normal EYELID: eyelids normal CONJUNCTIVA: Yes conjunctivae normal PUPIL: Yes Equal, round and reactive pupils present Neck/C-Spine: GENERAL: No tracheal deviation Chest: COMMONS NORMALS: normal inspection of the chest CHEST: No tenderness Resp: COMMON NORMALS: clear to auscultation bilaterally EFFORT & INSPECTION: Yes tachypneic, Yes respiratory distress, No retractions, Yes uses accessory muscles and No tracheal deviation AUSCULTATION: clear to auscultation bilaterally, no rhonchi, no wheezes and diminished lung sounds Cardio: COMMON NORMALS: regular rate and regular rhythm RATE: regular rate RHYTHM: regular rhythm HEART SOUNDS: no murmurs PERIPHERAL PULSES: radial pulses present GI: INSPECTION: No abdominal distension AUSCULTATION: No Hyperactive bowel sounds present and No Hypoactive bowel sounds present PALPATION: No Guarding due to palpation present (GI) and No Rigid due to palpation PERCUSSION: no dullness to percussion and no tympanic to percussion Neuro: SENSORIUM/ORIENTATION: Yes oriented to person, Yes oriented to place and Yes oriented to time Psych: COMMON NORMALS: mental status grossly normal Skin: COMMON NORMALS: no rashes or lesions noted GENERAL SKIN EXAM: no rashes or lesions noted Course Consult[facility]ital Signs: Vital signs: Vital Signs Temperature 99.4 F 12/01/20 20:10 Pulse Rate 82 12/01/20 23:50 Respiratory Rate 28 H 12/01/20 23:50 Blood Pressure 144/78 12/01/20 23:50 Pulse Oximetry 89 L 12/01/20 23:50 MDM - COVID MDM Narrative: Medical decision making narrative: 70-year-old COVID-19 positive patient with bilateral pneumonitis and hypoxic respiratory failure. His laboratory actually looks quite good. He is diabetic, and will have to have steroids, which is of concern. His oxygenation is the main issue. Currently is on high flow nasal cannula at 8 L. Sats have been 88 to 92%. He is much more comfortable breathing. His respiratory rate currently is 20 on the monitor. His blood pressure is 144/78, heart rate in the 80s. We have no available at this hospital, as the hospital is full including ICU, and viral ICU. Spoke with [facility] and [facility], and they have an ICU bed available for this patient. Patient stable at this point for transfer Lab Data: Labs: Lab Results 12/01/20 12/01/20 12/01/20 Range/Units 20:30 20:30 20:30 WBC 6.2 (4.0-10.0) 10^3/ uL RBC 4.85 (4.1-5.3) 10^6/u L Hgb 13.0 (11.7-16.6) g/dL Hct 41.6 L (42.0-52.0) % MCV 85.8 (80-94) fL MCH 26.8 L (28.0-34.0) pg MCHC 31.3 (30.0-36.0) g/dL RDW 14.3 (12.1-15.1) % Plt Count 149 (130-400) 10^3/c mm MPV 11.5 H (7.4-10.4) fL Neut % (Auto) 69.0 % Lymph % (Auto) 23.7 % [place] % (Auto) 6.3 % Eos % (Auto) 0.2 % Baso % (Auto) 0.3 % Neut # (Auto) 4.29 (1.8-7.7) 10^3/u L Lymph # (Auto) 1.5 (0.8-4.8) 10^3/u L [place] # (Auto) 0.4 (0.2-0.9) 10^3/u L Eos # (Auto) 0.0 (0.0-0.8) 10^3/u L Baso # (Auto) 0.0 (0.0-0.1) 10^3/u L Nucleated RBC % (a uto) 0 % Nucleated RBCs # 0.0 /100WBC D-Dimer 0.66 H (0-0.59) ug/mIFE U Specimen Type Sample Site ABG pH (7.35-7.45) ABG pCO2 (35-45) mmHg ABG pO2 (80.0-100.0) mmH g ABG HCO3 (22-26) mmol/L ABG Base Excess (-2.0-2.0) mmol/ L Kushal Test Hematocrit (42-52) % O2 Delivery Device O2 Liters/Min % Ticket Worker ID Sodium 136 (136-145) mmol/L Potassium 4.1 (3.5-5.1) mmol/L Chloride 100 (98-107) mmol/L Carbon Dioxide 22 (22-29) mmol/L Anion Gap 18.1 (5-19) BUN 12 (8-23) mg/dL Creatinine 0.7 (0.7-1.2) mg/dL GFR Calculation 112.1 (90-130) mL/min Glucose 225 H (65-115) mg/dL Calculated Osmolal ity 289 (285-295) mOsm/k g Lactic Acid (0.5-2.2) mmol/L Calcium 8.4 L (8.5-10.5) mg/dL Total Bilirubin 0.7 (0.15-1.2) mg/dL AST 49 H (0-40) U/L ALT 38 (0-41) U/L Alkaline Phosphata se 76 (40-130) IU/L Lactate Dehydrogen ase 269 H (135-225) U/L Troponin T Baselin e (0-15) ng/L C-Reactive Protein 62.4 H (0.0-4.9) mg/L NT-Pro-B Natriuret Pep 74 (0-125) pg/mL Total Protein 6.4 L (6.6-8.7) g/dL Albumin 3.4 L (3.5-5.2) g/dL Globulin 3.0 (1.3-4.6) g/dL Procalcitonin 0.08 (0-0.5) ng/mL 12/01/20 12/01/20 12/01/20 Range/Units 20:30 20:30 21:30 WBC (4.0-10.0) 10^3/ uL RBC (4.1-5.3) 10^6/u L Hgb (11.7-16.6) g/dL Hct (42.0-52.0) % MCV (80-94) fL MCH (28.0-34.0) pg MCHC (30.0-36.0) g/dL RDW (12.1-15.1) % Plt Count (130-400) 10^3/c mm MPV (7.4-10.4) fL Neut % (Auto) % Lymph % (Auto) % [place] % (Auto) % Eos % (Auto) % Baso % (Auto) % Neut # (Auto) (1.8-7.7) 10^3/u L Lymph # (Auto) (0.8-4.8) 10^3/u L [place] # (Auto) (0.2-0.9) 10^3/u L Eos # (Auto) (0.0-0.8) 10^3/u L Baso # (Auto) (0.0-0.1) 10^3/u L Nucleated RBC % (a uto) % Nucleated RBCs # /100WBC D-Dimer (0-0.59) ug/mIFE U Specimen Type Arterial Sample Site Radial, right ABG pH 7.43 (7.35-7.45) ABG pCO2 35.9 (35-45) mmHg ABG pO2 55.5 L (80.0-100.0) mmH g ABG HCO3 23.9 (22-26) mmol/L ABG Base Excess 0.0 (-2.0-2.0) mmol/ L Kushal Test Pos Hematocrit 40.8 L (42-52) % O2 Delivery Device Nc O2 Liters/Min 6.0 % Ticket Worker ID Hinja Sodium (136-145) mmol/L Potassium (3.5-5.1) mmol/L Chloride (98-107) mmol/L Carbon Dioxide (22-29) mmol/L Anion Gap (5-19) BUN (8-23) mg/dL Creatinine (0.7-1.2) mg/dL GFR Calculation (90-130) mL/min Glucose (65-115) mg/dL Calculated Osmolal ity (285-295) mOsm/k g Lactic Acid 1.7 (0.5-2.2) mmol/L Calcium (8.5-10.5) mg/dL Total Bilirubin (0.15-1.2) mg/dL AST (0-40) U/L ALT (0-41) U/L Alkaline Phosphata se (40-130) IU/L Lactate Dehydrogen ase (135-225) U/L Troponin T Baselin e 14 (0-15) ng/L C-Reactive Protein (0.0-4.9) mg/L NT-Pro-B Natriuret Pep (0-125) pg/mL Total Protein (6.6-8.7) g/dL Albumin (3.5-5.2) g/dL Globulin (1.3-4.6) g/dL Procalcitonin (0-0.5) ng/mL COVID Results: No Data to Display Discharge Plan Discharge Patient Disposition: Xfer Other Clinical Impression: Respiratory failure, Pneumonia due to 2019 novel coronavirus Condition: Serious Referrals: Darrell Khalil DO [Primary Care Provider] - Coding Level of Care Code ED Awning Hanger Helper for Chg Fwd Exam Comprehensive
[2020-12-01 23:50] VITALS: BP 144/78; PULSE 82; RESP 28; O2SAT 89
== END 2020-12-02 01:00 | disposition other institution (70) ==
PROVIDERS: Emergency Provider Emergency Medicine; PCP Electrodiagnostic Medicine
DX: U07.1 COVID-19 (principal); J12.89 Other viral pneumonia; J96.90 Respiratory failure, unspecified, unspecified whether with hypoxia or hypercapnia; E11.9 Type 2 diabetes mellitus without complications; I10 Essential (primary) hypertension
CPT/HCPCS: 12345; 36600; 71045; 80053; 82803; 83605; 83615; 83880; 84145; 84484; 85025; 85378; 86140; 87040; 93005; 96361; 96374; 96375; 99282; 99285; J1100; J2405; J3535